=== PATIENT | female | born 1990 | race Caucasian/White ===

== ENCOUNTER 2020-07-12 18:41 | Emergency (ER) | payer SELFPAY ==
[2020-07-12] MEDS ORDERED: Acetaminophen 500 MG Tab PO STA (19:25)
[2020-07-12] MEDS ORDERED: Ibuprofen 800 MG Tab PO STA (19:25)
--- NOTE | 2020-07-12 19:56 | EDM.PDOC ---
ED HPI GENERAL MEDICAL PROBLEM - General Chief Complaint: Upper Extremity Injury/Pain Stated Complaint: POSSIBLE BROKEN RIGHT THUMB Time Seen by Provider: 07/12/20 19:20 Source of Information: Reports: Patient History Limitations: Reports: No Limitations - History of Present Illness INITIAL COMMENTS - FREE TEXT/NARRATIVE: Patient presented to the ED because of rt thumb injury. She was hopping from one couch to the other, fell and twisted her left thumb. Right Finger-Thumb Pain Score (Numeric/FACES): 7 - Related Data Allergies Allergy/AdvReac Type Severity Reaction Status Date / Time fluoxetine [From Prozac] Allergy Rash Verified 07/12/20 19:06 Past Medical History Musculoskeletal History: Reports: Other (See Below) Other Musculoskeletal History: left knee dislocation x2 Psychiatric History: Reports: Depression - Past Surgical History Endocrine Surgical History: Reports: Thyroidectomy Other Endocrine Surgeries/Procedures: had half of thyroid removed due to enlarged nodules Social & Family History - Tobacco Use Tobacco Use Status *Q: Never Tobacco User - Caffeine Use Caffeine Use: Reports: Coffee, Soda - Recreational Drug Use Recreational Drug Use: No Review of Systems - Review of Systems Review Of Systems: See Below Constitutional: Reports: No Symptoms Eyes: Reports: No Symptoms Ears: Reports: No Symptoms Nose: Reports: No Symptoms Mouth/Throat: Reports: No Symptoms Respiratory: Reports: No Symptoms Cardiovascular: Reports: No Symptoms GI/Abdominal: Reports: No Symptoms Genitourinary: Reports: No Symptoms Musculoskeletal: Reports: Other (Rt tumb pain) Neurological: Reports: No Symptoms Psychiatric: Reports: No Symptoms ED EXAM, GENERAL - Physical Exam Exam: See Below Exam Limited By: No Limitations General Appearance: Alert, No Apparent Distress Ears: Normal External Exam, Normal Canal Throat/Mouth: Normal Inspection, Normal Lips, Normal Teeth Head: Atraumatic, Normocephalic Neck: Normal Inspection, Supple, Non-Tender, Full Range of Motion Respiratory/Chest: No Respiratory Distress, Lungs Clear, Normal Breath Sounds, No Accessory Muscle Use, Chest Non-Tender Cardiovascular: Normal Peripheral Pulses, Regular Rate, Rhythm, No Edema, No Gallop, No JVD, No Murmur, No Rub GI/Abdominal: Normal Bowel Sounds, Soft, Non-Tender, No Organomegaly, No Distention Back Exam: Normal Inspection, Full Range of Motion Extremities: Normal Inspection, Joint Swelling, Other (tenderness and swelling base of the rt thumb) Course - Vital Signs Text/Narrative:: Xray rt thumb-see result Ibuprofen 800 mg and tylenol 1000 mg po x1 Last Recorded V/S: Last Vital Signs Temp 36.7 C 07/12/20 19:07 Pulse 101 H 07/12/20 19:07 Resp 16 07/12/20 19:07 BP 134/85 07/12/20 19:07 Pulse Ox 99 07/12/20 19:07 - Orders/Labs/Meds Orders: Active Orders 24 hr Category Date Time Status Hand Comp Min 3V Rt [CR] Stat Exams 07/12/20 19:26 Ordered Meds: Medications Discontinued Medications Generic Name Dose Route Start Last Admin Trade Name Bolaq PRN Reason Stop Dose Admin Acetaminophen 1,000 mg 07/12/20 19:25 07/12/20 19:33 Acetaminophen 500 Mg Tab PO 07/12/20 19:26 1,000 mg NOW STA Administration Ibuprofen 800 mg 07/12/20 19:25 07/12/20 19:32 Ibuprofen 800 Mg Tab PO 07/12/20 19:26 800 mg NOW STA Administration Departure - Departure Time of Disposition: 20:00 Disposition: Home, Self-Care 01 Condition: Good Clinical Impression: Thumb sprain - Discharge Information Instructions: Thumb Sprain Referrals: PCP,None [Primary Care Provider] - Additional Instructions: Please read discharge instructions on thumb sprain Soak your thumb in ice water 3 times daily. It helps with hasmukh and swelling. Take ibuprofen 800 mg and tylenol 1000 mg every 8 hours as needed for pain We will call you if there is any change on the xray reading Follow up as needed Sepsis Event Note (ED) - Evaluation Sepsis Screening Result: No Definite Risk - Focused Exam Vital Signs: Vital Signs Temp Pulse Resp BP Pulse Ox 07/12/20 19:07 36.7 C 101 H 16 134/85 99 - My Orders Last 24 Hours: My Active Orders 07/12/20 19:26 Hand Comp Min 3V Rt [CR] Stat - Assessment/Plan Last 24 Hours: My Active Orders 07/12/20 19:26 Hand Comp Min 3V Rt [CR] Stat
--- NOTE | 2020-07-13 11:06 | CR ---
INDICATION: Right thumb injury. Jammed it on the couch. RIGHT HAND: Three views of the right hand were obtained 07/12/20 - no comparison. An acute fracture, dislocation or other significant bone or joint abnormality was not identified. If symptoms persist - if occult fracture site is suspected clinically, reexamination in 10 to 14 days may be helpful. [facility]
== END 2020-07-12 20:00 | disposition home or self-care (01) ==
LOC: FB.ED 18:41
DX: S63.601A Unspecified sprain of right thumb, initial encounter (principal); Z88.8 Allergy status to other drugs, medicaments and biological substances; X50.1XXA Overexertion from prolonged static or awkward postures, initial encounter
CPT/HCPCS: 73130; 99283; A9270